=== PATIENT | female | born 1975 | race Two or more races ===

== ENCOUNTER 2020-05-04 14:03 | Outpatient (REF) | payer OTHER, MEDICAID, SELFPAY ==
--- NOTE | 2020-05-04 14:08 | MM_ITS ---
EXAMINATION: MM SCREENING DIGITAL BREAST TOMOSYNTHESIS, BILATERAL CLINICAL INFORMATION: Screening. Asymptomatic. The lifetime risk of breast cancer based on the Tyrer-Cuzick Model is 6.8%. COMPARISON: Mammography: 08/13/2017 and 05/09/2016. TECHNIQUE: Digital breast tomosynthesis is performed in both the craniocaudal and mediolateral oblique views along with computer-aided detection (CAD). Synthesized 2D images are generated from the tomosynthesis. FINDINGS: The breasts are heterogeneously dense, which may obscure small masses (ACR BI-RADS breast composition Category c). There is stable appearance of the left breast with no new abnormal dominant mass or suspicious grouping of microcalcifications. Within the retroareolar region of the right breast medially there is a well-circumscribed approximately 9 x 7 x 6 mm density not seen previously. Recommend spot compression film and ultrasound if warranted. MM/MM tomosynthesis screening BI IMPRESSION: Right breast density for further evaluation as described. ASSESSMENT: BI-RADS 0: Incomplete - Need Additional Imaging Evaluation RECOMMENDATION: 1. Additional views of the right breast. 2. Targeted ultrasound if warranted after review of the additional views. 3. Radiology department staff will contact the patient for additional imaging. This patient's information was entered into a reminder system with a target due date for their next mammogram.
== END 2020-05-04 14:04 | disposition home or self-care (01) ==
LOC: HO.MAMMO 14:03
PROVIDERS: PCP Family Medicine; Visit Provider Family Medicine
DX: Z12.31 Encounter for screening mammogram for malignant neoplasm of breast (principal)
CPT/HCPCS: 77063; 77067

== ENCOUNTER 2020-06-08 12:53 | Outpatient (REF) | payer MEDICAID, OTHER, SELFPAY ==
--- NOTE | 2020-06-08 12:57 | MM_ITS ---
EXAMINATION: MM DIAGNOSTIC DIGITAL BREAST TOMOSYNTHESIS, RIGHT CLINICAL INFORMATION: Recall from screening for retroareolar nodule 4:00 position right breast. Age 44. No family history breast cancer. TC score 7%. COMPARISON: Mammography: 05/04/2020, 08/13/2017, 05/09/2016. TECHNIQUE: Digital breast tomosynthesis is performed. 2D images are generated from the tomosynthesis. The following views are obtained: Spot CC, spot ML. Ultrasound right breast is targeted to the periareolar medial breast. Grayscale imaging and color Doppler are performed without and with harmonics. FINDINGS: There are scattered areas of fibroglandular density (ACR BI-RADS breast composition Category b). The additional spot views confirm a circumscribed smooth nodule retroareolar 330 o'clock position measuring under 1 cm. In retrospect, finding is likely stable from 2-D mammography MLO views 08/13/2017, better appreciated on current exam with digital breast tomosynthesis. Ultrasound right breast demonstrates circumscribed macrolobulated nodule approximately 0.8 x 0.6 cm retroareolar 4:00 position wider than tall. No increased or decreased through transmission of sound. No associated color flow. Results are discussed with the patient at time of visit. Management options discussed with patient. Patient prefers serial follow-up to ultrasound-guided tissue sampling at this time. MM/MM tomosynthesis added views R IMPRESSION: Circumscribed retroareolar nodule 4:00 position measuring under 1 cm, likely chronic but better appreciated with recent tomography. Benign differential considerations include fibroadenoma, past, apocrine metaplasia. ASSESSMENT: BI-RADS 3: Probably Benign RECOMMENDATION: Diagnostic right mammography and right breast ultrasound in 6 months. This patient's information was entered into a reminder system with a target due date for their next mammogram.
== END 2020-06-08 12:54 | disposition home or self-care (01) ==
LOC: HO.MAMMO 12:53
PROVIDERS: PCP Family Medicine; Visit Provider Family Medicine
DX: N63.14 Unspecified lump in the right breast, lower inner quadrant (principal)
CPT/HCPCS: 76642; 77061; 77065

== ENCOUNTER 2020-06-21 09:09 | Outpatient (REF) | payer MEDICAID, OTHER, SELFPAY ==
--- NOTE | ~2020-06-21 | MM_ITS ---
EXAMINATION: ULTRASOUND GUIDED CORE BIOPSY BREAST, RIGHT POST PROCEDURE DIGITAL MAMMOGRAM, RIGHT CLINICAL INFORMATION: Hypoechoic periareolar nodule right breast under 1 cm. COMPARISON: Mammography 05/04/2020, 06/08/2020, targeted right breast ultrasound 06/08/2020. FINDINGS: Proper informed consent is obtained from the patient after discussion of the procedure, potential risks and complications, and alternatives. Patient was given an opportunity for questions. The patient appeared to understand. The patient consented to the procedure and signed the consent form. GUIDANCE: Ultrasound-guided; aseptic technique. LESION: Macrolobulated nodule 0.8 x 0.6 cm retroareolar 4:00 position wider than tall (apocrine metaplasia, papilloma, fibroadenoma, other). APPROACH: Oblique caudal cranial. ANESTHESIA: 10 mL 1% lidocaine. DERMATOTOMY: Single skin abbie dermatotomy performed. NEEDLE: 14-gauge Achieve core biopsy device with 13.5-gauge co-axial guide needle. CORES: 6. CLIP: HydroMARK; shape: open coil. POST PROCEDURE UNILATERAL DIGITAL MAMMOGRAM: The post biopsy mammogram is performed in separate room using separate digital mammography equipment from the biopsy procedure. CC and ML views are obtained. There are scattered areas of fibroglandular density (breast composition category: b). The clip marker is in position. The nodule sampled on ultrasound corresponds to the recent mammographic finding (concordant). No gross hematoma. The patient tolerated the procedure well. No immediate complications. Home instructions reviewed with the patient. Final pathology results are pending. MM/MM diagnostic mammo unilat RT IMPRESSION: 1. Status post ultrasound-guided core biopsy right breast. 2. Clip placed: HydroMARK; shape: open coil. 3. Pathology pending. An addendum report will be issued.
== END 2020-06-21 09:10 | disposition home or self-care (01) ==
LOC: HO.MAMMO 09:09
PROVIDERS: Visit Provider Surgery
DX: N63.14 Unspecified lump in the right breast, lower inner quadrant (principal)
CPT/HCPCS: 19083; 77065; 88305; 99202; A4648

== ENCOUNTER 2021-06-16 10:08 | Outpatient (REF) | payer MEDICAID, OTHER, SELFPAY ==
--- NOTE | ~2021-06-16 | MM_ITS ---
EXAMINATION: MM SCREENING DIGITAL BREAST TOMOSYNTHESIS, BILATERAL CLINICAL INFORMATION: Screening. Asymptomatic. Benign right ultrasound-guided biopsy 06/21/2020 (fibroadenoma). The lifetime risk of breast cancer based on the Tyrer-Cuzick Model is 12%. COMPARISON: Mammography: 06/21/2020, 06/08/2020, 05/04/2020, 08/13/2017; ultrasound guided right breast biopsy 06/21/2020. Ultrasound right breast 06/08/2020 TECHNIQUE: Digital breast tomosynthesis is performed in both the craniocaudal and mediolateral oblique views along with computer-aided detection (CAD). Synthesized 2D images are generated from the tomosynthesis. FINDINGS: There are scattered areas of fibroglandular density (ACR BI-RADS breast composition Category b). There are no significant masses, abnormal calcifications, or other abnormalities. Parenchymal pattern is similar to prior studies. No developing density. There is a biopsy clip marker again noted retroareolar 4:00 right breast. MM/MM tomosynthesis screening BI IMPRESSION: No mammographic evidence of malignancy. ASSESSMENT: BI-RADS 2: Benign RECOMMENDATION: Routine annual mammography screening. This patient's information was entered into a reminder system with a target due date for their next mammogram.
== END 2021-06-16 10:09 | disposition home or self-care (01) ==
LOC: HO.MAMMO 10:08
PROVIDERS: Visit Provider Family Medicine
DX: Z12.31 Encounter for screening mammogram for malignant neoplasm of breast (principal)
CPT/HCPCS: 77063; 77067

== ENCOUNTER 2022-06-25 15:09 | Outpatient (REF) | payer MEDICAID, SELFPAY ==
--- NOTE | ~2022-06-25 | MM_ITS ---
EXAMINATION: MM SCREENING DIGITAL BREAST TOMOSYNTHESIS, BILATERAL CLINICAL INFORMATION: Screening. Asymptomatic. Benign right ultrasound-guided biopsy 06/21/2020 (fibroadenoma). The lifetime risk of breast cancer based on the Tyrer-Cuzick Model is 7%. COMPARISON: Mammography: 06/16/2021, 06/21/2020, 06/08/2020, 05/04/2020 TECHNIQUE: Digital breast tomosynthesis is performed in both the craniocaudal and mediolateral oblique views along with computer-aided detection (CAD). Synthesized 2D images are generated from the tomosynthesis. FINDINGS: There are scattered areas of fibroglandular density (ACR BI-RADS breast composition Category b). There are no significant masses, abnormal calcifications, or other abnormalities. There is biopsy clip marker overlying a stable nodule anterior right breast consistent with the known fibroadenoma. No developing density or architectural abnormality. The axilla are unremarkable. No significant changes. MM/MM tomosynthesis screening BI IMPRESSION: No mammographic evidence of malignancy. ASSESSMENT: BI-RADS 2: Benign RECOMMENDATION: Routine annual mammography screening. This patient's information was entered into a reminder system with a target due date for their next mammogram.
== END 2022-06-25 15:10 | disposition home or self-care (01) ==
LOC: HO.MAMMO 15:09
PROVIDERS: PCP Family Medicine; Visit Provider Family Medicine
DX: Z12.31 Encounter for screening mammogram for malignant neoplasm of breast (principal)
CPT/HCPCS: 77063; 77067

== ENCOUNTER → 2022-10-16 14:03 | Outpatient (BNVA) | payer MEDICAID, SELFPAY | PROVIDERS: PCP Family Medicine; Visit Provider Surgery Vascular Surgery | DX: I83.12 Varicose veins of left lower extremity with inflammation (principal) | CPT/HCPCS: 99202 ==

== ENCOUNTER 2022-10-24 13:06 | Outpatient (REF) | payer MEDICAID, SELFPAY ==
--- NOTE | ~2022-10-24 | US_ITS ---
EXAMINATION: US LOWER EXTREMITY VENOUS (REFLUX EXAM), BILATERAL CLINICAL INDICATION: History of left leg ablation COMPARISON: None. TECHNIQUE: Color flow triplex imaging and compression Doppler was performed to evaluate both the deep and the superficial systems bilaterally. To evaluate the superficial system, the examination was performed in the upright position. Color-flow Doppler ultrasound and compression ultrasound were utilized. In addition, maneuvers were utilized to demonstrate reflux. FINDINGS: 1. DEEP VENOUS ULTRASOUND OF THE RIGHT LOWER EXTREMITY: Common Femoral Vein: Compressible, normal respiratory variation and augmented flow. Femoral Vein: Compressible, normal color flow and augmentation. Popliteal Vein: Compressible, normal augmentation. Deep Reflux: There is no evidence of reflux in the deep system in either the common femoral vein or the popliteal vein. There is no evidence of a Yi's cyst. 2. SUPERFICIAL ULTRASOUND WITH DOPPLER OF RIGHT LOWER EXTREMITY: GREAT SAPHENOUS VEIN: Saphenofemoral Junction: 0.7 cm; Reflux: 0 ms Proximal Thigh: 0.4 cm; Reflux: 0 ms Mid Thigh: 0.3 cm; Reflux: 1228 ms Above Knee: 0.3 cm; Reflux: 0 ms At Knee: 0.4 cm; Reflux: 0 ms Below Knee: 0.3 cm; Reflux: 0 ms Mid Calf: 0.2 cm; Reflux: 0 ms Ankle: 0.3 cm; Reflux: 0 ms DUPLICATED MEDIAL GREAT SAPHENOUS VEIN: Diameter: None imaged Reflux: NA DUPLICATED LATERAL GREAT SAPHENOUS VEIN: Proximal: 0.3 cm; Reflux: 0 ms Distal: 0.1 cm; Reflux: 0 ms SMALL SAPHENOUS VEIN: Proximal: 0.2 cm; Reflux: 0 ms Distal: 0.2 cm; Reflux: 0 ms VEIN OF GIACOMINI: Size: NA Reflux: NA PERFORATORS: Location: None imaged Size: NA Reflux: NA VARICOSITIES: Location: None imaged Size: NA Reflux: NA 3. DEEP VENOUS ULTRASOUND OF THE LEFT LOWER EXTREMITY: Common Femoral Vein: Compressible, normal respiratory variation and augmented flow. Femoral Vein: Compressible, normal color flow and augmentation. Popliteal Vein: Compressible, normal augmentation. Deep Reflux: There is no evidence of reflux in the deep system in either the common femoral vein or the popliteal vein. There is no evidence of a Yi's cyst. 4. SUPERFICIAL ULTRASOUND WITH DOPPLER OF LEFT LOWER EXTREMITY: GREAT SAPHENOUS VEIN: Saphenofemoral Junction: 0.8 cm; Reflux: 0 ms Proximal Thigh: 0.4 cm; Reflux: 0 ms Mid Thigh: 0.3 cm; Reflux: 0 ms Above Knee: 0.3 cm; Reflux: 0 ms At Knee: 0.3 cm; Reflux: 0 ms Below Knee: 0.3 cm; Reflux: 0 ms Mid Calf: 0.2 cm; Reflux: 0 ms Ankle: 0.2 cm; Reflux: 0 ms DUPLICATED MEDIAL GREAT SAPHENOUS VEIN: Diameter: None imaged Reflux: NA DUPLICATED LATERAL GREAT SAPHENOUS VEIN: Proximal: 0.3 cm; Reflux: 0 ms Distal: 0.2 cm; Reflux: 0 ms SMALL SAPHENOUS VEIN: Proximal: 0.2 cm; Reflux: 0 ms Distal: 0.3 cm; Reflux: 0 ms VEIN OF GIACOMINI: Size: NA Reflux: NA PERFORATORS: Location: None imaged Size: Mid calf 0.2 cm Reflux: NA VARICOSITIES: Location: None Imaged Size: NA Reflux: NA Incidental note is made of a normal appearing left inguinal lymph node. US/US venous duplex LE BI IMPRESSION: Right great saphenous vein reflux at the mid thigh.
== END 2022-10-24 13:07 | disposition home or self-care (01) ==
LOC: HO.US 13:06
PROVIDERS: PCP Family Medicine; Visit Provider Surgery Vascular Surgery
DX: I83.12 Varicose veins of left lower extremity with inflammation (principal)
CPT/HCPCS: 93970

== ENCOUNTER 2022-12-06 14:55 | Outpatient (AMB) | payer MEDICAID, SELFPAY ==
[2022-12-06 14:56] VITALS: BMI 24.3
--- NOTE | 2022-12-06 14:56 | A.OFFVIS_ITS ---
Intake Vital Signs 12/06/22 14:56 Height 5 ft 5 in Weight 146 lb BMI 24.3 Intake Visit Reasons: f/u s/p US 10/24/22 Intake Note: follow up US 10/24/2022 for Left LE VV and swelling. Pt had Left LE venous procedure done by @ [facility] in the past. 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 Pt states that she has been wearing compression socks (knee high) pt states she would prefer thigh high socks Accompanied by: Self / Same As Patient Allergies ethinyl estradiol [From Seasonale ()] Allergy (Mild, Verified 10/16/22 14:11) Sneezing levonorgestrel [From Seasonale (91)] Allergy (Mild, Verified 10/16/22 14:11) Sneezing HPI f/u s/p US 10/24/22 HPI Details Very pleasant 47-year-old female presents for follow-up regarding painful varicosities. The biggest complaint is a cluster varicosities in her left posterior thigh. Overall she does note a significant improvement with compression stockings. She now presents for follow-up with venous insufficiency testing. Of note she has had prior left leg ablation is by Dr. Mayer at [facility]. This has been affecting her work as a childcare worker at [employer]. [employer] Surgical History History of back surgery History of foot surgery Social History Alcohol intake: current Alcohol intake frequency: holidays/special occasions only Alcohol type: wine Review of Systems Const Reports as per HPI ENT Reports no additional complaints Card Denies chest pain, Denies chest pain at rest and Denies chest pain with activity Resp Denies chest congestion and Denies cough GI Reports no additional complaints Musc Details: pain over varicosities, aching of lower extremities, swelling, cramping, heaviness and tiredness, itching Denies abnormal gait Skin/Breast Reports pruritus and Denies wounds Neuro Reports no additional complaints and Denies abnormal gait Psych Denies no additional complaints Physical Exam Vital Signs: BMI result Body Mass Index 24.3 Const General: cooperative, healthy appearing and comfortable Orientation/consciousness: oriented to person, oriented to place and oriented to time Neck Carotids: no bruits Chest Chest palpation & inspection: normal inspection of the chest and normal palpation of entire chest wall Resp Effort & Inspection: normal respiratory effort and able to speak in complete sentences Cardio Rate: regular rate Heart sounds: S1 normal heart sound present and S2 normal heart sound present Peripheral pulses: Peripheral pulses 2+ throughout GI Inspection: Yes normal to inspection Skin Other: +2 edema, large rope-like varicosities greater than 4 mm left posterior thigh CEAP Classification C4 - skin color changes Ep - Etiology Primary As - superficial veins P - reflux General skin exam: dry skin Neuro General: oriented to person, oriented to place and oriented to time Extrem Right lower extremity: full ROM, normal capillary refill and edema Left lower extremity: full ROM, normal capillary refill and edema Psych Mental Status: mental status grossly normal Results Reviewed Results Reviewed: Brief summary of venous insufficiency testing is as follows: right great saphenous vein: negative right small saphenous vein: negative right accessory vein: none present left great saphenous vein: negative left small saphenous vein: negative left accessory vein: none present Please note there is no evidence of any venous aneurysms or significant tortuosity Assessment & Plan Assessment & Plan (1) Varicose veins of left lower extremity with inflammation: Code(s): I83.12 - Varicose veins of left lower extremity with inflammation Plan: In short patient is negative for any significant venous reflux. It appears that the prior ablation is half function fairly well. She does have this left posterior thigh cluster. At the current time she would like to manage this conservatively. I did give her a prescription for thigh-high compression stockings. She will follow up with us on an as-needed basis if she does require a microphlebectomy. Thank you for allowing us to assist in her care. If there are any questions or concerns please do not hesitate to contact us. Coding Level of Care Code Est Pt Level 4 (34215) Diagnoses Varicose veins of left lower extremity with inflammation I83.12
== END 2022-12-06 15:14 | disposition home or self-care (01) ==
PROVIDERS: PCP Family Medicine; Visit Provider Surgery Vascular Surgery
DX: I83.12 Varicose veins of left lower extremity with inflammation (principal)
CPT/HCPCS: 99213

== ENCOUNTER → 2022-12-06 14:55 | Outpatient (BNVA) | payer MEDICAID, SELFPAY | PROVIDERS: PCP Family Medicine; Visit Provider Surgery Vascular Surgery ==

== ENCOUNTER → 2022-12-12 14:05 | Outpatient (AMB) | payer MEDICAID, SELFPAY ==
--- NOTE | 2022-12-12 14:10 | A.OFFVIS_ITS ---
Intake Vital Signs 12/12/22 14:16 Height 5 ft 5 in Weight 146 lb BMI 24.3 BP 125/64 Blood Pressure Location Lt brachial Position Sitting Pulse 92 Intake Visit Reasons: CIC Intake Note: Patient new consult for CIC. Patient denies any GI issues. Hand Plug Shaper Required: No Accompanied by: Self / Same As Patient Allergies ethinyl estradiol [From Seasonale (91)] Allergy (Mild, Verified 12/12/22 14:10) Sneezing levonorgestrel [From Seasonale (91)] Allergy (Mild, Verified 12/12/22 14:10) Sneezing Medication List - Last Reconciled 12/12/22 by Pia Aguiar PA-C acetaminophen ER 650 mg PO Q8H cholecalciferol (vitamin D3) 50 mcg PO DAILY fluticasone propionate 50 mcg/actuation (Flonase Allergy Relief) 2 sprays intranasal DAILY loratadine (Claritin) 10 mg PO DAILY naproxen (Naprosyn) 500 mg PO BID HPI HPI Comments History of Present Illness Details A 47 y/o female referred for index screening colonoscopy-she has a normal bowel pattern. She has very good appetite. 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 She has not had any issues. She was followed up postop and discharged She is back to work full-time No known family history colon cancer No nausea, vomiting, hematemesis, hematochezia fever chills PFSH Surgical History History of back surgery History of foot surgery Social History Household Members: Children Alcohol intake: current Alcohol intake frequency: holidays/special occasions only Alcohol type: wine Patient Tobacco Use Status: Never used Tobacco Use of substances other than those prescribed or required for medical reasons: No Review of Systems Const All systems reviewed & are unremarkable except as noted in HPI and below Card Denies chest pain and Denies dyspnea Resp Denies dyspnea GI Denies abdominal pain, Denies change in bowel habits, Denies heartburn, Denies nausea and Denies vomiting Physical Exam Vital Signs: Last Vital Signs Pulse 92 12/12/22 14:16 BP 125/64 12/12/22 14:16 BMI result Body Mass Index 24.3 Const General: cooperative, healthy appearing, comfortable, no acute distress, well developed and Physically active Orientation/consciousness: patient oriented x3 Limitations: no limitations Eyes Sclerae: sclerae normal Resp Effort & Inspection: normal respiratory effort and able to speak in complete sentences Auscultation: clear to auscultation bilaterally Cardio Rate: regular rate Rhythm: regular rhythm Heart sounds: S1 normal heart sound present and S2 normal heart sound present GI Palpation (GI): Soft to palpation and nontender Auscultation: normal bowel sounds Skin General skin exam: no rashes or lesions noted Neuro General: patient oriented x3 Extrem General: Yes full ROM Psych Appearance: grossly normal and well kempt Mental Status: mental status grossly normal Speech and movement: Normal speech and movement present and Clear speech present Affect: normal affect Attitude: cooperative Thought process: Normal thought process present Thought content: Normal thought content present Insight: Good insight present (Psych) Judgement: Good judgement present (Psych) Assessment & Plan Assessment & Plan (1) Encounter for screening colonoscopy: Comment: 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 20 mg (4 x 5 mg) PO ONCE 1 day 4 tabs 0RF colonoscopy prep Z12.11 - Encounter for screening for malignant neoplasm of colon polyethylene glycol 3350 (Miralax) Take as directed by mouth the day before your procedure. 238 grams PO ONCE 1 day PRN 238 grams 0RF laxative effect Patient Instructions: a very pleasant 47 y/o female referred for index screening colonoscopy. She has no GI complaints. Discussed procedure, rare risks, need for escorted due to anesthesia and MiraLax Gatorade prep literature given Opportunity for questions Appreciate the opportunity assist in the care this pleasant patient Coding Level of Care Code New Pt Level 3 (99511) Diagnoses Encounter for screening colonoscopy Z12.11 Time Spent (min) 30
[2022-12-12 14:16] VITALS: BP 125/64; PULSE 92; BMI 24.3
== END ==
PROVIDERS: PCP Family Medicine; Visit Provider Physician Assistant
DX: Z12.11 Encounter for screening for malignant neoplasm of colon (principal)
CPT/HCPCS: 99203

== ENCOUNTER → 2022-12-12 14:05 | Outpatient (BNVA) | payer MEDICAID, SELFPAY | PROVIDERS: PCP Family Medicine; Visit Provider Physician Assistant | DX: Z12.11 Encounter for screening for malignant neoplasm of colon (principal); K59.04 Chronic idiopathic constipation | CPT/HCPCS: 99203 ==

== ENCOUNTER 2022-12-27 21:24 | Outpatient (REF) | payer MEDICAID, SELFPAY ==
[2022-12-28 15:22] LABS: BV Int Neg Control Negative (Negative); BV Int Pos Control Positive (Positive)
== END 2022-12-27 21:25 | disposition home or self-care (01) ==
LOC: HO.HHCLNP 21:24
PROVIDERS: Visit Provider Advanced Practice Midwife
DX: N89.8 Other specified noninflammatory disorders of vagina (principal); B37.31 Acute candidiasis of vulva and vagina
CPT/HCPCS: 87480; 87510; 87660

== ENCOUNTER 2023-07-08 15:12 | Outpatient (REF) | payer MEDICAID, SELFPAY ==
--- NOTE | ~2023-07-08 | MM_ITS ---
EXAMINATION: MM SCREENING DIGITAL BREAST TOMOSYNTHESIS, BILATERAL CLINICAL INFORMATION: Screening. Asymptomatic. COMPARISON: Mammography: This study is compared with prior exams dating back to 2018. TECHNIQUE: Digital breast tomosynthesis is performed in both the craniocaudal and mediolateral oblique views along with computer-aided detection (CAD). Synthesized 2D images are generated from the tomosynthesis. FINDINGS: The breasts are heterogeneously dense, which may obscure small masses (ACR BI-RADS breast composition Category c). There are no significant masses, abnormal calcifications, or other abnormalities. There is a tissue marker present in the medial aspect of the right breast from prior benign percutaneous biopsy. MM/MM tomosynthesis screening BI IMPRESSION: No mammographic evidence of malignancy. ASSESSMENT: BI-RADS BI-RADS 2 - Benign Findings RECOMMENDATION: Routine annual mammography screening. 1 year F/U This examination should not preclude the clinical evaluation of a suspicious palpable abnormality. This patient's information was entered into a reminder system with a target due date for their next mammogram.
== END 2023-07-08 15:13 | disposition home or self-care (01) ==
LOC: HO.MAMMO 15:12
PROVIDERS: PCP Family Medicine; Visit Provider Family Medicine
DX: Z12.31 Encounter for screening mammogram for malignant neoplasm of breast (principal)
CPT/HCPCS: 77063; 77067

== ENCOUNTER → 2023-07-08 15:30 | Outpatient (BNV) | payer MEDICAID, SELFPAY | PROVIDERS: PCP Family Medicine; Visit Provider Radiology Diagnostic Radiology | DX: Z12.31 Encounter for screening mammogram for malignant neoplasm of breast (principal) | CPT/HCPCS: 77063; 77067 ==

== ENCOUNTER 2023-07-16 | Outpatient (REF) | payer MEDICAID, SELFPAY ==
[2023-07-18 17:04] LABS: C. trachomatis RNA TMA NOT DETECTED (NOT DETECTED); Candida glabrata RNA NOT DETECTED (NOT DETECTED); Candida species RNA DETECTED (NOT DETECTED); N. gonorrhoeae RNA TMA NOT DETECTED (NOT DETECTED); Trichomonas vaginalis RNA NOT DETECTED (NOT DETECTED)
== END 2023-07-16 00:01 | disposition home or self-care (01) ==
LOC: HO.HHCLNP
PROVIDERS: Visit Provider Nurse Practitioner Family
DX: N89.8 Other specified noninflammatory disorders of vagina (principal)
CPT/HCPCS: 36415; 81513; 87481; 87491; 87591; 87661

== ENCOUNTER 2023-10-08 11:24 | Outpatient (REF) | payer MEDICAID, SELFPAY ==
[2023-10-09 14:03] LABS: Bacterial Vaginosis PCR POSITIVE (Negative); Candida Group PCR DETECTED (Not Detect); Candida glab krusei PCR NOT DETECTED (Not Detect); Trichomonas vaginalis PCR NOT DETECTED (Not Detect)
[2023-10-09 14:51] LABS: CT PCR NOT DETECTED (Not Detect.); NG PCR NOT DETECTED (Not Detect.)
== END 2023-10-08 11:25 | disposition home or self-care (01) ==
LOC: HO.LNP 11:24
PROVIDERS: Visit Provider Internal Medicine
DX: N76.0 Acute vaginitis (principal)
CPT/HCPCS: 0352U; 0353U; 87086

== ENCOUNTER 2024-01-15 12:10 | Outpatient (REF) | payer MEDICAID, SELFPAY ==
[2024-01-16 13:19] LABS: Bacterial Vaginosis PCR POSITIVE (Negative); Candida Group PCR DETECTED (Not Detect); Candida glab krusei PCR NOT DETECTED (Not Detect); Trichomonas vaginalis PCR NOT DETECTED (Not Detect)
[2024-01-16 13:49] LABS: CT PCR NOT DETECTED (Not Detect.); NG PCR NOT DETECTED (Not Detect.)
== END 2024-01-15 12:11 | disposition home or self-care (01) ==
LOC: HO.HHCLNP 12:10
PROVIDERS: Visit Provider Nurse Practitioner
DX: N89.8 Other specified noninflammatory disorders of vagina (principal)
CPT/HCPCS: 0352U; 87491; 87591

== ENCOUNTER 2024-09-04 16:31 | Outpatient (REF) | payer MEDICAID, SELFPAY ==
--- OUTSIDE RECORDS SUMMARY | 2024-09-04 16:35 | XMS_ITS | Encounter Summary ---
Author Organization [employer] Address [address] [place] [address] Care Team Providers Care Professional Engineer Name Role Phone MorKaylan foy Primary Care Provider + [phone] Encounter Details Date Type Department Care Team (Late st Contact Info) Description 07/26/2023 Orders Only [facility] [address] [place] [address] Elisabeth Knight FNP [address] [place] [address] Social History Tobacco Use Types Packs/Day Years Used Date Smoking Tobacco: Never Passive Smoke Exposure: Never Smokeless Tobacco: Never Alcohol Use Standard Drinks/Week Comments Never 0 (1 standard drink = 0.6 oz pur e alcohol) Depression Answer Date Recorded Patient Health Questionnaire-9 Score 12 09/27/2022 Housing Stability Answer Date Recorded What is your housing situation today? I have kwasi nugent 03/11/[address] you li ve. Do you have problems with any of the following? None of the above 03/11/2023 Food Insecurity Answer Date Recorded Within the past 12 months, y ou worried that your food would run out before you got money to buy more: Never True 03/11/2023 Within the past 12 months,th e food you bought just didn't last and you didn't have enough money to get more: Never True Transportation Answer Date Recorded In the past 12 months, has l ack of transportation kept you from medical appts, meetings, work or from getting things needed for daily living? No 03/11/2023 Utilities Answer Date Recorded In the past 12 months, has t he electric, gas, oil or water company threatened to shut off services in your home? No 03/11/2023 Depression Answer Date Recorded Patient Health Questionnaire-2 Score 4 09/27/2022 Comments No Sex and Gender Information Value Date Recorded Sex Assigned at Female 03/12/2022 10:21 AM EDT Legal Sex Female 10:21 AM EDT Gender Identity Female 03/12/2022 10:21 AM EDT Sexual Orientation Choose not to disclose 2021 10:21 AM EDT documented as of this encounter Plan of Treatment Not on file documented as of this encounter Visit Diagnoses Not on filedocumented in this encounter Additional Health Concerns Assessment Noted Time PHQ-9 Depression Total Score: 12 023 12:11 PM EDT documented as of this encounter Care Teams Professional Engineer Relationship Specialty Start Date End Date Kaylan Bello DO [address] [place] [id number] PCP - General Family Medicine 02/10/21 documented as of this encounter
--- OUTSIDE RECORDS SUMMARY | 2024-09-04 16:36 | XMS_ITS | Encounter Summary ---
Author Organization [employer] Address [address] [place] [address] Care Team Providers Care Centerless Grinder Name Role Phone Kaylan Bello DO Primary Care Provider [phone] Encounter Details Date Type Department Care Team (Latest Contact Info) Description 02/27/2021 Abstract [facility], Provider, DDS Social History Tobacco Use Types Packs/Day Years Used Date Smoking Tobacco: Never Assessed Comments Unknown Sex and Gender Information Value Date Recorded Sex Assigned at Female 03/12/2022 10:21 AM EDT Legal Sex Female 10:21 AM EDT Gender Identity Female 03/12/2022 10:21 AM EDT Sexual Orientation Choose not to disclose 2021 10:21 AM EDT documented as of this encounter Plan of Treatment Not on file documented as of this encounter Visit Diagnoses Not on filedocumented in this encounter Care Teams Centerless Grinder Relationship Specialty Start Date End Date Kaylan Bello DO [address] [place] [id number] PCP - General Family Medicine 02/10/21 documented as of this encounter
--- OUTSIDE RECORDS SUMMARY | 2024-09-04 16:36 | XMS_ITS | Encounter Summary ---
Author Organization [employer] Address [address] [place] [address] Care Team Providers Care Background Check Coordinator Name Role Phone Kaylan Bello DO Primary Care Provider [phone] Encounter Details Date Type Department Care Team (Latest Contact Info) Description 08/29/2021 [facility], Provider, DDS Social [...] on filedocumented in this encounter Care Teams Background Check Coordinator Relationship Specialty Start Date End Date Kaylan Bello DO [address] [place] [id number] PCP - General Family Medicine 02/10/21 documented as of this encounter
--- OUTSIDE RECORDS SUMMARY | 2024-09-04 16:36 | XMS_ITS | Encounter Summary ---
Author Organization [employer] Address [address] [place] [address] Care Team Providers Care Engine Dynamometer Tester Name Role Phone Kaylan Bello DO Primary Care Provider [phone] Encounter Details Date Type Department Care Team (Latest Contact Info) Description 07/25/2018 [facility], Provider, DDS Social [...] on filedocumented in this encounter Care Teams Engine Dynamometer Tester Relationship Specialty Start Date End Date Kaylan Bello DO [address] [place] [id number] PCP - General Family Medicine 02/10/21 documented as of this encounter
--- OUTSIDE RECORDS SUMMARY | 2024-09-04 16:36 | XMS_ITS | Encounter Summary ---
Author Organization [employer] Address [address] [place] [address] Care Team Providers Care Director Of Category Management Name Role Phone Kaylan Bello DO Primary Care Provider [phone] Encounter Details Date Type Department Care Team (Latest Contact Info) Description 06/02/2020 Abstract [facility], Provider, DDS Social [...] on filedocumented in this encounter Care Teams Director Of Category Management Relationship Specialty Start Date End Date Kaylan Bello DO [address] [place] [id number] PCP - General Family Medicine 02/10/21 documented as of this encounter
--- OUTSIDE RECORDS SUMMARY | 2024-09-04 16:36 | XMS_ITS | Encounter Summary ---
Author Organization [employer] Address [address] [place] [address] Care Team Providers Care Public Transit Trolley Driver Name Role Phone Kaylan Bello Primary Care Provider + [phone] Encounter Details Date Type Department Care Team (Latest Contact Info) Description 09/04/2024 Travel Social History Tobacco Use Types Packs/Day Years Used Date Smoking Tobacco: Never Passive Smoke Exposure: Never Smokeless Tobacco: Never Alcohol Use Standard Drinks/Week Comments Never 0 (1 standard drink = 0.6 oz pur e alcohol) Depression Answer Date Recorded Patient Health Questionnaire-9 Score 18 09/04/2024 Patient Health Questionnaire-9 Score 18 09/04/2024 Last PHQ-9: Questionnaire Data Not on file 0 09/04/2024 Housing Stability Answer Date Recorded What is your housing situation today? I have kwasi nugent 09/04/[address] you li ve. Do you have problems with any of the following? None of the above 09/04/2024 Food Insecurity Answer Date Recorded Within the past 12 months, y ou worried that your food would run out before you got money to buy more: Never True 09/04/2024 Within the past 12 months,th e food you bought just didn't last and you didn't have enough money to get more: Never True Transportation Answer Date Recorded In the past 12 months, has l ack of transportation kept you from medical appts, meetings, work or from getting things needed for daily living? No 09/04/2024 Utilities Answer Date Recorded In the past 12 months, has t he electric, gas, oil or water company threatened to shut off services in your home? No 09/04/2024 Depression Answer Date Recorded Patient Health Questionnaire-2 Score 4 09/04/2024 Internet Access Answer Date Recorded Internet Access Q1 Yes 09/04/2024 Internet Access Q2 Not on file 09/04/2024 Comments No Sex and Gender Information Value [...] Assessment Noted Time PHQ-9 Depression Total Score: 18 025 1:26 PM EDT documented as of this encounter Care Teams Public Transit Trolley Driver Relationship Specialty Start Date End Date Kaylan Bello DO [address] [place] [id number] PCP - General Family Medicine 02/10/21 documented as of this encounter
--- OUTSIDE RECORDS SUMMARY | 2024-09-04 16:36 | XMS_ITS | Encounter Summary ---
Author Organization [employer] Address [address] [place] [address] Care Team Providers Care Manufacturing Quality Technician Name Role Phone Kaylan Bello Primary Care Provider + [phone] Encounter Details Date Type Department Care Team (Latest Contact Info) Description 09/02/2024 Travel Social History Tobacco Use Types Packs/Day [...] documented as of this encounter Care Teams Manufacturing Quality Technician Relationship Specialty Start Date End Date Kaylan Bello DO [address] [place] [id number] PCP - General Family Medicine 02/10/21 documented as of this encounter
--- OUTSIDE RECORDS SUMMARY | 2024-09-04 16:36 | XMS_ITS | Encounter Summary ---
Author Organization [facility] Address [address] [place] [address] Care Team Providers Care Manager Highway Name Role Phone Kaylan Bello DO Primary Care Provider + [phone] Reason for Visit * Reason Onset Date Comments Chart Prep 09/02/2024 Encounter Details Date Type Department Care Team (Late st Contact Info) Description 09/02/2024 Telephone [facility] [address] [place], [place] [phone] Kaylan Bello DO [address] [place], [place] [phone] Chart Prep Social History Tobacco Use Types Packs/Day Years Used Date Smoking Tobacco: Never Passive Smoke Exposure: Never Smokeless Tobacco: Never Alcohol Use Standard Drinks/Week Comments Never 0 (1 standard drink = 0.6 oz pur e alcohol) Depression Answer Date Recorded Patient Health Questionnaire-9 Score 12 09/27/2022 Housing Stability Answer Date Recorded What is your housing situation today? I have kwasijoselito nugent 03/11/[address] you [...] AM EDT documented as of this encounter Miscellaneous Notes * Telephone Encounter - Cecille Mortensen [place] - 09/02/2024 9:27 AM EDT Chart Prep Labs: not applicable Images: done Referrals: N\S to derm appt on 03/13/2024 Vaccines due: yes Screenings: colonoscopy Overdue care gaps: SBIRT, SDOH, PHQ-9, ANATOLIY-7, Oral health screening, Disability screen, and Tobacco documented in this encounter Plan of Treatment Not on file documented as of this encounter Visit Diagnoses Not on filedocumented in this encounter Additional Health Concerns Assessment Noted Time PHQ-9 Depression Total Score: 12 023 12:11 PM EDT documented as of this encounter Care Teams Manager Highway Relationship Specialty Start Date End Date Kaylan Bello DO [address] [place] [address] PCP - General Family Medicine 02/10/21 documented as of this encounter
--- OUTSIDE RECORDS SUMMARY | 2024-09-04 16:36 | XMS_ITS | Encounter Summary ---
Author Organization [employer] Address [address] [place] [address] Care Team Providers Care Precision Machine Operator Name Role Phone Kaylan Bello DO Primary Care Provider + [phone] Reason for Visit * Reason Onset Date Comments Nurse Triage 10/24/2023 Encounter Details Date Type Department Care Team (Late st Contact Info) Description 10/24/2023 Telephone [facility] [address] [place], [place] [phone] Kaylan Bello DO [address] [place], [place] [phone] Nurse Triage Social History Tobacco Use Types Packs/Day Years [...] encounter Miscellaneous Notes * Telephone Encounter - Liana Figueroa RN - 10/24/2023 11:59 AM EDT Called pt. She states that she has been having allergies in her eyes x 2 days. Pt gets seasonal allergies at this time of year and eyes have become very itchy over the past 2 days. Redness but, no drainage. Eyelids are slightly swollen from rubbing eyes. Pt also has sneezing. Pt asking for refills on allergy medications. No fever, no cough. Advised pt. To apply cold compresses to eyes and if sx. Worsen or if pt. Develops drainage from eyes to go to walk in for further evaluation. Pt agrees withplan and would like allergy medications to be sent to Pharmacy. Will send request to PCP Protocol Used: Nasal Allergies (Hay Fever) (Adult) Protocol-Based Disposition: Home Care Positive Triage Question: * Nasal allergies occur only certain times of year * All higher-acuity triage questions were negative Care Advice Discussed: * Reassurance and Education - Hay Fever * Wash Pollen off Body Daily * Avoiding Pollen * Nasal Washes for a Stuffy Nose and to Wash out Pollen * Antihistamine Medicines for Hay Fever * Nasal Decongestants for a Very Stuffy Nose * For Eye Allergies * Telephone Encounter - Lina Lino - 10/24/2023 11:46 AM EDT Symptom: Eye Allergy Outcome: Schedule an urgent appointment (within 4 hours) or talk to a nurse or provider soon Reason: Eyelid is red and swollen The caller accepted this outcome documented in this encounter Plan of Treatment Not on file documented as of this encounter Visit Diagnoses Not on filedocumented in this encounter Additional Health Concerns Assessment Noted Time PHQ-9 Depression Total Score: 12 023 12:11 PM EDT documented as of this encounter Care Teams Precision Machine Operator Relationship Specialty Start Date End Date Kaylan Bello DO [address] [place] [address] PCP - General Family Medicine 02/10/21 documented as of this encounter
--- OUTSIDE RECORDS SUMMARY | 2024-09-04 16:36 | XMS_ITS | Encounter Summary ---
Author Organization [employer] Address [address] [place] [address] Care Team Providers Care Lottery Manager Name Role Phone Kaylan Bello DO Primary Care Provider + [phone] Encounter Details Date Type Department Care Team (Latest Contact Info) Description 09/04/2024 11:45 AM EDT Procedure Visit [facility] [address] [place], [place] [phone] Kaylan Bello DO [address] [place], [place] [phone] Encounter for cervical Pap smear with pelvic exam (Primary Dx) Social History Tobacco Use Types Packs/Day Years [...] AM EDT documented as of this encounter Last Filed Vital Signs Vital Sign Reading Time Taken Comments Blood Pressure 120/70 09/04/2024 12:08 PM EDT Pulse 64 09/04/2024 12:08 PM EDT Temperature 36.8 ??C (98.3 ??F) 09/04/2024 12:08 PM E DT Respiratory Rate 20 09/04/2024 12:08 PM EDT Oxygen Saturation 100% 09/04/2024 12:08 PM EDT Inhaled Oxygen Concentration - - Weight 66.7 kg (147 lb) 09/04/2024 12:08 PM EDT Height 165.1 cm (5' 5 ) 09/04/2024 12:08 PM EDT Body Mass Index 24.46 09/04/2024 12:08 PM EDT documented in this encounter Plan of Treatment Scheduled Orders Name Type Priority Associated Diagnoses Order Schedule Chlamydia/N. Gonorrhoeae RNA, TMA, Urogenitial Microbiology Routine Encounter for cervical Pap smear with pelvic exam Ordered: 09/04/2024 Pap Smear Pathology and Cytology Routine Encounter for cervical Pap smear with pelvic exam Ordered: 09/04/2024 T4, Free Lab Routine Encounter for cervical Pap smear with pelvic exam Expected: 09/04/2024 (Approximate), Expires: 09/04/2025 Lipid Panel, Standard Lab Routine Encounter for cervical Pap smear with pelvic exam Expected: 09/04/2024 (Approximate), Expires: 09/04/2025 TSH Lab Routine Encounter for cervical Pap smear with pelvic exam Expected: 09/04/2024 (Approximate), Expires: 09/04/2025 Vitamin D, 25-Hydroxy, Total, Immunoassay Lab Routine Encounter for cervical Pap smear with pelvic exam Expected: 09/04/2024 (Approximate), Expires: 09/04/2025 Hepatic Function Panel Lab Routine Encounter for cervical Pap smear with pelvic exam Expected: 09/04/2024 (Approximate), Expires: 09/04/2025 Hemoglobin A1c Lab Routine Encounter for cervical Pap smear with pelvic exam Expected: 09/04/2024 (Approximate), Expires: 09/04/2025 CBC Lab Routine Encounter for cervical Pap smear with pelvic exam Expected: 09/04/2024, Expires: 09/04/2025 Basic Metabolic Panel Lab Routine Encounter for cervical Pap smear with pelvic exam Expected: 09/04/2024 (Approximate), Expires: 09/04/2025 Hepatitis B surface antigen, EIA Lab Routine Encounter for cervical Pap smear with pelvic exam Expected: 09/04/2024 (Approximate), Expires: 09/04/2025 HIV-1/2 Antigen and Antibodies, Fourth Generation, with Reflexes Lab Routine Encounter for cervical Pap smear with pelvic exam Expected: 09/04/2024 (Approximate), Expires: 09/04/2025 Hepatitis C Antibody with Reflex to HCV, RNA, Quantitative, Real-Time PCR Lab Routine Encounter for cervical Pap smear with pelvic exam Expected: 09/04/2024, Expires: 09/04/2025 RPR (Monitor) with Reflex to??Titer Lab Routine Encounter for cervical Pap smear with pelvic exam Expected: 09/04/2024, Expires: 09/04/2025 Hepatitis B Surface Antibody, Qualitative Lab Routine Encounter for cervical Pap smear with pelvic exam Expected: 09/04/2024 (Approximate), Expires: 09/04/2025 Hepatitis A Antibody, Total Lab Routine Encounter for cervical Pap smear with pelvic exam Expected: 09/04/2024 (Approximate), Expires: 09/04/2025 Hepatitis B Core Antibody, Total Lab Routine Encounter for cervical Pap smear with pelvic exam Expected: 09/04/2024 (Approximate), Expires: 09/04/2025 documented as of this encounter Visit Diagnoses Diagnosis Encounter for cervical Pap smear with pelvic exam- Primary documented in this encounter Additional Health Concerns Assessment Noted Time PHQ-9 Depression Total Score: 18 025 1:26 PM EDT documented as of this encounter Care Teams Lottery Manager Relationship Specialty Start Date End Date Kaylan Bello DO [address] [place] [address] PCP - General Family Medicine 02/10/21 documented as of this encounter
--- OUTSIDE RECORDS SUMMARY | 2024-09-04 16:36 | XMS_ITS | Clinical Summary ---
Author Organization [employer] Address [address] [facility] 7[address] [place] [address] Care Team Providers Care Dispatch Lead Name Role Phone MorKaylan foy Primary Care Provider + [phone] Allergies No known active allergies Medications cholecalciferol (Vitamin D-3) 50 MCG (1999) tablet Take 1 tablet by mouth at bed time. 03/03/20 21 Active estradiol (Estrace) 0.1 MG/GM vaginal cream See Instructions, 1 Gm Vaginally Daily at bedtime every night for 2 weeks and then 2-3 times a week after that, # 42.5 Gm, 0 Refills, Maintenance, 11/14/21 14:14:00 EDT, [facility]/pharmacy #[id number], Partial fill upon patient request if the prescription is for... 11/15/19 22 Active etonogestrel-eluti ng (Nexplanon) 68 mg contraceptive implant Subcutaneous Active famotidine (Pepcid) 20 MG tablet Take 1 tablet by mouth every 12 (twelve) hours. 01/18/20 22 Active ibuprofen 600 MG tablet TAKE 1 TABLET BY MOUTH 4 TIMES A DAY NEEDED FOR PAIN 10/05/19 22 Active ketotifen (Zaditor) 0.025 % ophthalmic solution 1 drop in the morning and 1 drop in the evening. 10/30/19 19 Active simethicone (Mylicon,Gas-X) 180 MG capsule take one with meals three times a day 01/18/20 22 Active SUMAtriptan (Imitrex) 50 MG tablet Take 1 tablet by mouth. 03/24/20 21 Active levonorgestrel (Plan B) 1.5 MG tabletIndications: Encounter for removal and reinsertion of etonogestrel implant Take all at once today 1 tablet 05/24/19 23 Active polyethylene glycol, PEG, 3350 (Glycolax) 17 GM/SCOOP powder Take 17 g by mouth if needed each day (constipation). 578 g 1 09/28/19 23 Active senna (Senokot) 8.6 MG tablet Take 2 tablets (17.2 mg) by mouth if needed at bedtime for constipation. 60 tablet 1 09/28/19 23 Active baclofen (Lioresal) 10 MG tablet Take 1 tablet (10 mg) by mouth if needed in the morning, at noon, and at bedtime for muscle spasms. 60 tablet 1 09/28/19 23 Active Diclofenac Sodium 1 % gel Apply 2 g topically if needed in the morning, at noon, in the evening, and at bedtime (pain). 150 g 3 09/28/19 23 Active atorvastatin (Lipitor) 10 MG tabletIndications: Hyperlipidemia, unspecified hyperlipidemia type TAKE 1 TABLET BY MOUTH EVERYDAY AT BEDTIME 90 tablet 12/05/19 23 Active hydrocortisone (Preparation H) 1 % cream Apply to anal area bid prn 30 g 2 07/16/19 24 Active fluticasone (Flonase) 50 MCG/ACT nasal spray Administer 2 sprays into each nostril Once per day. 16 g 11 11/11/19 24 025 Active loratadine (Claritin) 10 MG tablet Take 1 tablet (10 mg) by mouth Once per day. 30 tablet 11 11/11/19 24 025 Active fluconazole (Diflucan) 200 MG tabletIndications: Vaginal dionisio Take 1 tablet (200 mg) by mouth 1 (one) time per week. 4 tablet 1 01/24/20 24 Active tacrolimus (Protopic) 0.1 % ointmentIndication s:Genital pruritus Apply topically 2 times daily. 30 g 1 01/24/20 24 025 Active Active Problems Problem Noted Date Diagnosed Date Varicose veins 09/07/2022 Hyperlipidemia 09/07/2022 Allergic rhinitis 09/07/2022 Chronic constipation 09/07/2022 BMI 25.0-25.9,adult 09/07/2022 Chronic migraine 05/02/2022 PTSD (post-traumatic stress disorder) 05/02/2022 Chronic pain in left foot 03/15/2016 Vitamin D deficiency 03/15/2016 Major depression, recurrent, chronic 10/27/2015 Resolved Problems Problem Noted Date Diagnosed Date Resolved Date Generalized abdominal pain 05/02/2022 0 09/07/2022 Pain in left shoulder 05/02/20222022 Syncope and collapse 05/02/2022 023 Encounters Date Type Department Care Team Description 09/04/2024 11:45 AM EDT Procedure Visit [facility] [address] [place] [address] Kaylan Bello DO Encounter for cervical Pap smear with pelvic exam (Primary Dx) 09/04/2024 Travel 09/02/2024 Travel 09/02/2024 Telephone [facility] [address] [place] [address] Kaylan Bello DO Chart Prep 06/10/2024 Telephone [facility] [address] [place] [address] Kaylan Bello DO No Show from Last 3 Months Immunizations Name Administration Dates Next Due Hep A, Adult 09/19/2018 Influenza injectable quadriv alent IIV4 with preservative 03/03/2018,04/11/2017 Influenza injectable quadriv alent preservative free 02/19/2023,03/03/2021,02/17/2020,2015 Influenza, IIV3, injectable 02/13/2010 Influenza, Split (incl. errol fied surface antigen) 02/01/2012 Influenza, seasonal, injecta ble, preservative free 03/09/2024 MMR 09/15/2018 Moderna Covid-19 Vaccine 12+ 06/02/2020 Pfizer Covid-19 Vaccine 12+ Bivalent 09/07/2022 TD (adult), 2 Lf tetanus tox oid, preservative free, adsorbed 08/08/2020 Tdap 09/19/2018,10/03/2009 Social History Tobacco Use Types Packs/Day Years Used Date Smoking Tobacco: Never Passive Smoke Exposure: Never Smokeless Tobacco: Never Tobacco Cessation:Counseling Given: Not Answered Alcohol Use Standard Drinks/Week Comments Never 0 [...] not to disclose 2021 10:21 AM EDT Last Filed Vital Signs Vital Sign Reading [...] Mass Index 24.46 09/04/2024 12:08 PM EDT Plan of Treatment Health Maintenance Due Date Last Done Comments CT Colonography 1975 Colonoscopy 1975 Colorectal Cancer Screening 1975 FIT DNA/Cologuard 1975 FIT 1975 FOBT 1975 Sigmoidoscopy 1975 Family Planning (PISQ) 07/11/1990 Hepatitis B Vaccines (1 of 3 - 19+ 3-dose series) 07/11/1994 Pap Smear 03/03/2024 03/03/2021, 02/11, 02/17/2020, Additional history exists Dental Oral Exam 06/06/2024 12/04/2023, , 02/27/2021, Additional history exists Dental Prophylaxis 06/06/2024 12/04/2023, 0 08/29/2021, 02/27/2021, Additional history exists Dental X-Ray: Full Mouth 08/30/2024 08/29/2021, 10/11 Dental X-Ray: Bitewings 12/04/2024 12/04/19, 07/11/2023, 08/29/2021, Additional history exists Mammogram 07/08/2025 07/08/2023, 06/13, 06/25/2022, Additional history exists Zoster Vaccines (1 of 2) 07/11/2025 Alcohol/Substance Use Screening 09/04/2025 09/04/2024 Depression Screening 09/04/2025 09/04/2024, 09/05/19 SDOH Screening 09/04/2025 09/04/2024 Tobacco Screening 09/04/2025 09/04/2024 Cervical Cancer Screening 03/03/2026 HPV/Cotest 03/03/2026 03/03/2021, 1011/2019, 05/09/2016 DTaP/Tdap/Td Vaccines (4 - Td or Tdap) 08/08/2030 08/08/2020, 09/19/2018, 10/03/2009 RSV Patients and Patients Aged 60 years or older (1 - 1-dose 75+ series) 07/11/2050 Hepatitis A Vaccines Aged Out 09/19/2018 No long er eligible based on patient's age to complete this topic HIV Screening Completed 09/07/2022, 03/24/2021 Hepatitis C Screening Completed 09/07/2022, 021 COVID-19 Vaccine Completed 03/09/2024, , 05/24/2021, Additional history exists Influenza Vaccine Completed 03/09/2024, , 03/03/2021, Additional history exists HIB Vaccines Aged Out No longer eligi ble based on patient's age to complete this topic HPV Vaccines Aged Out No longer eligi ble based on patient's age to complete this topic IPV Vaccines Aged Out No longer eligi ble based on patient's age to complete this topic Meningococcal Vaccine Aged Out No kajal eliane eligible based on patient's age to complete this topic Pneumococcal Vaccine: Pediatrics (0 to 5 Years) and At-Risk Patients (6 to 49) Years) Aged Out No longer eligible based on patient's age to complete this topic RSV under 20 months Aged Out No longe r eligible based on patient's age to complete this topic Rotavirus Vaccines Aged Out No longer eligible based on patient's age to complete this topic Procedures Procedure Name Priority Date/Time Associated Diagnosis Comments Full PROPHYLAXIS - ADULT Routine 12/04/2023 11:10 AM EDT BITEWINGS - 4 RADIOGRAPHIC IMAGES Routine 12/04/2023 11:10 AM EDT PERIODIC ORAL EVALUATION - ESTABLISHED PATIENT Routine 12/04/2023 11:10 AM EDT BI MAMMOGRAM SCREENING TOMOSYNTHESIS BILATERAL Routine 07/08/2023 3:30 PM EST HEPATITIS C AB W/RFL RNA, PCR W/RFL GENOTYPE,LIPA Routine 09/07/2022 12:41 PM EDT Healthcare maintenance HIV 1/2 ANTIGEN/ANTIBODY, FOURTH GENERATION W/RFL Routine 09/07/2022 12:41 PM EDT Healthcare maintenance INTRAORAL - COMPLETE SERIES OF RADIOGRAPHIC IMAGES Routine 08/29/2021 12:00 AM EDT HPV MRNA E6/E7 REFLEX TO HPV 16, 18/45 Routine 03/03/2021 12:00 AM EDT PAP SMEAR Routine 03/03/2021 12:00 AM EDT from Last 3 Months or Most Recently Relevant to Health Maintenance Results * BI Mammogram Screening Tomosynthesis Bilateral (07/08/2023 3:30 PM EST) Anatomical Region Laterality Modality Breast Bilateral Mammography 07/08/2023 3:30 PM EST Narrative 07/24/2023 6:04 PM EDT ? [facility] ? [address] ?[place], [place] [address] ? Mammography Report ? Signed ? Patient: Alondra Marques ?MR#: [id number] ?? [id number] ? : 1975 ?Acct:[id number] ? Age/Sex: 47 / F ?ADM Date: 07/08/23 ? Loc: HO.MAMMO ? Attending Dr: Kaylan Bello DO ? Ordering Physician: Kaylan Bello DO ?Results: 2B ?? enign Findings ? Date of Service: 07/08/23 ?Follow Up: 1 Year From Orig ?? inal Mammogram ? Procedure(s): MM tomosynthesis screening BI ?? Accession Number(s): [id number] ? cc: Kaylan Bello Milad DO ? EXAMINATION: ?? MM SCREENING DIGITAL BREAST TOMOSYNTHESIS, BILATERAL ? CLINICAL INFORMATION: ? Screening. Asymptomatic. ? COMPARISON: ?? Mammography: This study is compared with prior exams dating back to ?? 2018. ? TECHNIQUE: ?? Digital breast tomosynthesis is performed in both the craniocaudal and ?? mediolateral oblique views along with computer-aided detection (CAD). ?? Synthesized 2D images are generated from the tomosynthesis. ? FINDINGS: ?? The breasts are heterogeneously dense, which may obscure small masses ?? (ACR BI-RADS breast composition Category c). ? There are no significant masses, abnormal calcifications, or other ?? abnormalities. ? There is a tissue marker present in the medial aspect of the right ?? breast from prior benign percutaneous biopsy. ? MM/MM tomosynthesis screening BI ?? IMPRESSION: ?? No mammographic evidence of malignancy. ? ASSESSMENT: ? BI-RADS BI-RADS 2 - Benign Findings ? RECOMMENDATION: ?? Routine annual mammography screening. ? 1 year F/U ? This examination should not preclude the clinical evaluation of a ?? suspicious palpable abnormality. ? This patient's information was entered into a reminder system with a ?? target due date for their next mammogram. ? Dictated By: ?Margarita Porter MD ? Signed By: ?<Electronically signed by Margarita Porter MD in OV> ? 07/24/23 1800 ? DD/ 1530 ? TD/TT: ? Metals Analyst: ? Procedure Note Renan Smiley - 07/24/2023 [facility] [address] [place] [address] Dr. [place], [place] [address] Mammography Report Signed Patient: Alondra Marques MMR#: [id number] : 1975Acct:[id number] Age/Sex: 47 / FADM Date: 07/08/23 Loc: HO.MAMMO Attending Dr: Kaylan Bello DO Ordering Physician: Kaylan Belloults: 2B enign Findings Date of Service: 07/08/23Follow Up: 1 Year From Orig inal Mammogram Procedure(s): MM tomosynthesis screening BI Accession Number(s): [id number] cc: Kaylan Bello DO EXAMINATION: MM SCREENING DIGITAL BREAST TOMOSYNTHESIS, BILATERAL CLINICAL INFORMATION: Screening. Asymptomatic. COMPARISON: Mammography: This study is compared with prior exams dating back to 2018. TECHNIQUE: Digital breast tomosynthesis is performed in both the craniocaudal and mediolateral oblique views along with computer-aided detection (CAD). Synthesized 2D images are generated from the tomosynthesis. FINDINGS: The breasts are heterogeneously dense, which may obscure small masses (ACR BI-RADS breast composition Category c). There are no significant masses, abnormal calcifications, or other abnormalities. There is a tissue marker present in the medial aspect of the right breast from prior benign percutaneous biopsy. MM/MM tomosynthesis screening BI IMPRESSION: No mammographic evidence of malignancy. ASSESSMENT: BI-RADS BI-RADS 2 - Benign Findings RECOMMENDATION: Routine annual mammography screening. 1 year F/U This examination should not preclude the clinical evaluation of a suspicious palpable abnormality. This patient's information was entered into a reminder system with a target due date for their next mammogram. Dictated By: Margarita Porter MD Signed By: <Electronically signed by Margarita Porter MD in OV> 07/24/23 1800 DD/ 1530 TD/TT: Metals Analyst: Kaylan Bello DO IMG BI PROCEDURES Final Resu lt * Hepatitis C Antibody with Reflex to HCV RNA,PCR w/Reflex to Genotype, LiPA (09/07/2022 12:41 PM EDT) Hepatitis C Antibody NON-REACT JEREMY NON-REACT JEREMY Z2 Index 0.11 <1.00 [email or web address] [place] [facility] Comment: HCV antibody was non-reactive. There is no laboratory evidence of HCV infection. In most cases, no further action is required. However, if recent HCV exposure is suspected, a test for HCV RNA (test code 60881) is suggested. For additional information, please refer to http://education.[employer]faq/EQB286 (This link is being provided for informational/ educational purposes only.) 09/07/2022 12:4 1 PM EDT 09/07/2022 12:46 PM EDT Narrative [facility] - 09/10/2022 9:50 PM EDT FASTING:YES SAMPLE REC'D IN [place] FASTING: YES Kaylan Bello DO LAB BLOOD ORDERABLES Final R esult [facility] [address], [place] [address] [facility] [place] [facility] [address] [place] [address] * HIV-1/2 Antigen and Antibodies, Fourth Generation, with Reflexes (09/07/2022 12:41 PM EDT) HIV Antigen/Antibody, 4th Generation NON-REAC TIVE NON-REAC TIVE [facility] [place] [facility] Comment: HIV-1 antigen and HIV-1/HIV-2 antibodies were not detected. There is no laboratory evidence of HIV infection. PLEASE NOTE: This information has been disclosed to you from records whose confidentiality may be protected by state law. ??If your state requires such protection, then the state law prohibits you from making any further disclosure of the information without the specific written consent of the person to whom it pertains, or as otherwise permitted by law. A general authorization for the release of medical or other information is NOT sufficient for this purpose. ?? For additional information please refer to http://education.[employer]/faq/GTA412 (This link is being provided for informational/ educational purposes only.) The performance of this assay has not been clinically validated in patients less than 2 years old. Blood Venous blood specimen / Unknown 09/07/2022 12:41 PM EDT 09/07/2022 12:46 PM EDT Narrative [facility] - 09/10/2022 9:50 PM EDT FASTING:YES SAMPLE REC'D IN [place] FASTING: YES Kaylan Bello DO LAB BLOOD ORDERABLES Final R esult Performing Organization Address City/[facility]/ZIP Co de Phone Number [facility] [address], [place] [address] [facility] [address] [place] [address] * HPV mRNA E6/E7 REFLEX TO HPV 16, 18/45 (03/03/2021 12:00 AM EDT) HPV nRNA E6/E7 Not Detected Not Detected [facility] Comment: Methodology: Computer Forwarding System Markup Clerk-Mediated Amplification This assay detects E6/E7 viral messenger RNA (mRNA) from 14 high-risk HPV types (16,18,31,33,35,39,45,51,52,56,58,59,66,68). ? The analytical performance characteristics of this assay have been determined by [facility]. The modifications have not been cleared or approved by the FDA. This assay has been validated pursuant to the CLIA regulations and is used for clinical purposes. ?? For additional information, please refer to http://education.[employer]/faq/PSW435t0 (This link if provided for information/ educational purposes only.) 03/03/2021 Kaylan Bello [facility] LAB CYTOLOGY ORDERABLES Katharine l Result Performing Organization Address [facility]/ZIP Co de Phone Number [facility] [address] * Pap Smear (03/03/2021 12:00 AM EDT) Swab Kaylandia Juaresdanii [facility] LAB CYTOLOGY ORDERABLES Katharine l Result Performing Organization Address City/[facility]/ZIP Co de Phone Number [facility] [address], [place] [address] from Last 3 Months or Most Recently Relevant to Health Maintenance Insurance [employer] [facility] [place] Care Teams Dispatch Lead Relationship Specialty Start Date End Date Kaylan Bello DO [address] [place] [phone] PCP - General Family Medicine 02/10/21
[2024-09-05 05:38] LABS: CT PCR NOT DETECTED (Not Detect.); NG PCR NOT DETECTED (Not Detect.)
[2024-10-01 08:39] LABS: HPV Genotype 16 Negative (Negative); HPV Genotype 18 Negative (Negative); HPV High Risk Negative (Negative)
== END 2024-09-04 16:32 | disposition home or self-care (01) ==
LOC: HO.HHCLNP 16:31
PROVIDERS: Visit Provider Family Medicine
DX: Z01.419 Encounter for gynecological examination (general) (routine) without abnormal findings (principal); Z11.51 Encounter for screening for human papillomavirus (HPV)
CPT/HCPCS: 87491; 87591; 87626; 88175

== ENCOUNTER 2024-10-15 14:41 | Outpatient (REF) | payer MEDICAID, SELFPAY ==
[2024-10-15 16:17] LABS: Hematocrit 37.3 % (37.0-47.0); Hemoglobin 12.8 g/dl (12.0-16.0); Mean Corpuscular HGB Conc 34.3 g/dl (31.0-35.0); Mean Corpuscular Volume 93.3 fL (80.0-98.0); Mean Platelet Volume 11.3 fL (9.4-12.3); Platelet Count 245 X10*3/uL (160-400); Red Cell Distribution Width 11.9 % (11.0-16.0); White Blood Count 8.9 X10*3/uL (4.8-10.8)
[2024-10-15 16:54] LABS: Alanine Aminotransferase 24 U/L (0-31); Albumin Level 4.7 g/dL (3.5-5.0); Alkaline Phosphatase 55 U/L (39-117); Anion Gap 11 (12-20); Aspartate Amino Transferase 29 U/L (5-31); Bilirubin Direct 0.2 mg/dL (0.0-0.5); Bilirubin Total 0.7 mg/dL (0.0-1.0); Blood Urea Nitrogen 18 mg/dL (9-16); Carbon Dioxide 27 mmol/L (22-29); Chloride 104 mmol/L (96-108); Cholesterol 224 mg/dL (<200); Estimated Glomerular Filt Rate > 60; Glucose Random 98 mg/dL (60-115); HDL Cholesterol 39 mg/dL (>40); LDL Cholesterol Calculated 147 mg/dL (<100); Potassium 4.2 mmol/L (3.3-5.1); Sodium 138 mmol/L (135-145); Total Protein 8.1 g/dL (6.5-8.0); Triglycerides 192 mg/dL (<150)
[2024-10-15 17:02] LABS: Estimated Average Glucose 114 mg/dL; Hemoglobin A1C 127.3945 umol/L; Hemoglobin A1c % 5.6 % (<6.0)
[2024-10-15 17:11] LABS: Free T4 (Free Thyroxine) 0.97 ng/dL (0.71-1.85); Thyroid Stimulating Hormone 1.24 uIU/mL (0.32-4.0); Vitamin D 25-OH Total 29.3 ng/mL (>30)
--- OUTSIDE RECORDS SUMMARY | 2024-10-15 17:18 | XMS_ITS | Encounter Summary ---
Author Organization [employer] Address [address] [place] [address] Care Team Providers Care Sail Finisher Machine Name Role Phone Kaylan Bello DO Primary Care Provider + [phone] Encounter Details Date Type Department Care Team ([facility] st Contact Info) Description 07/26/[address] [facility] [address] [place] [address] Elisabeth Knight, MILLER [address] [place] [address] Social History Tobacco Use Types Packs/Day Years [...] as of this encounter Plan of Treatment Upcoming Encounters Date Type Department Care Team (Late st Contact Info) Description 10/19/2024 4:00 PM EDT Office Visit [facility] [address] [place] [address] Inez Sosa LLD [address] [place] [address] 03/29/2025 4:00 PM EST Office Visit [facility] [address] [place] [address] Makenzie Martinez documented as of this encounter Visit Diagnoses Not on filedocumented in this encounter Additional Health Concerns Assessment Noted Time PHQ-9 Depression Total Score: 12 023 12:11 PM EDT documented as of this encounter Care Teams Sail Finisher Machine Relationship Specialty Start Date End Date Kaylan Bello DO [address] [place] [id number] PCP - General Family Medicine 02/10/21 documented as of this encounter
[2024-10-16 05:26] LABS: Hepatitis A Antibody IgG REACTIVE (Nonreactive); ~Hepatitis A Antibody IgG 8.95 S/CO (0.00-0.99)
[2024-10-16 05:31] LABS: HBS Num1 104.74 mIU/mL (0-7.99); HBc Num1 7.94 S/CO (0.00-0.79); HBsAGNum1 0.29 S/CO (0.00-0.99); HIV AB/AG Nonreactive (Nonreactive); HIV Num 1 0.06 S/CO (0.00-0.99); Hepatitis B Surface Antigen Negative (Negative); ~HepC Num1 0.11 S/CO (0.00-0.79); ~Hepatitis B Surface Antibody REACTIVE (Nonreactive); ~Hepatitis C Antibody Nonreactive (Nonreactive)
[2024-10-16 06:11] LABS: HBc Num2 8.13 S/CO; HBc Num3 8.26 S/CO; Hepatitis B Core Antibody Reactive (Nonreactive)
[2024-10-16 14:28] LABS: RPR Rapid Plasma Reagin NON-REACTIVE (NON-REACTIVE)
== END 2024-10-15 14:42 | disposition home or self-care (01) ==
LOC: HO.HHCL 14:41
PROVIDERS: Visit Provider Family Medicine
DX: Z01.419 Encounter for gynecological examination (general) (routine) without abnormal findings (principal)
CPT/HCPCS: 36415; 80048; 80061; 80076; 82306; 83036; 84439; 84443; 85027; 86592; 86704; 86706; 86708; 86803; 87340; 87389

== ENCOUNTER 2024-10-15 15:47 | Outpatient (REF) | payer MEDICAID, SELFPAY ==
--- NOTE | ~2024-10-15 | MM_ITS ---
EXAMINATION: MM SCREENING DIGITAL BREAST TOMOSYNTHESIS, BILATERAL CLINICAL INFORMATION: Screening. Asymptomatic. COMPARISON: Mammography: Comparison is made with available priors TECHNIQUE: Digital breast mammography with tomosynthesis is performed in both the craniocaudal and mediolateral oblique views along with computer-aided detection (CAD). FINDINGS: The breasts are heterogeneously dense, which may obscure small masses (ACR BI-RADS breast composition Category c). Right marker clip. There are no significant masses, abnormal calcifications, or other abnormalities. MM/MM tomosynthesis screening BI IMPRESSION: No mammographic evidence of malignancy. ASSESSMENT: BI-RADS BI-RADS 2 - Benign Findings RECOMMENDATION: Routine annual mammography screening. 1 year F/U This examination should not preclude the clinical evaluation of a suspicious palpable abnormality. This patient's information was entered into a reminder system with a target due date for their next mammogram. Electronically signed by: Rose Mary Villegas DO 10/20/2024 12:37 PM EDT
== END 2024-10-15 15:48 | disposition home or self-care (01) ==
LOC: HO.MAMMO 15:47
PROVIDERS: PCP Family Medicine; Visit Provider Family Medicine
DX: Z12.31 Encounter for screening mammogram for malignant neoplasm of breast (principal)
CPT/HCPCS: 77063; 77067

== ENCOUNTER → 2024-10-15 16:00 | Outpatient (BNV) | payer MEDICAID, SELFPAY | PROVIDERS: PCP Family Medicine; Visit Provider Internal Medicine | DX: Z12.31 Encounter for screening mammogram for malignant neoplasm of breast (principal) | CPT/HCPCS: 77063; 77067 ==

== ENCOUNTER 2024-12-29 13:18 | Outpatient (REF) | payer OTHER, SELFPAY ==
--- OUTSIDE RECORDS SUMMARY | 2024-12-29 14:32 | XMS_ITS | Clinical Summary ---
Author Organization [facility] Address [address] [facility] [address] [place] [address] Phone Care Team Providers Care Donor Relations Associate Name Role Phone Kaylan Bello DO Primary Care Provider [phone] Pcp, Unknown Unavailable Unavailable Allergies No known active allergies Medications fluticasone propionate (FLONASE) 50 mcg/actuation nasal spray 2 sprays by Nasal route daily. 15.8 mL 01/04/2022 Active Immunizations Immunization Administration Dates Next Due COVID-19 (Pre) Moderna Vaccine, mRNA, PF 0 06/30/2020,06/02/2020 COVID-19 (Pre-03/04) Pfizer Vaccine, mRNA, PF Influenza, Unspecified Formulation 02/17/2020 Td (adult),2 Lf Tetanus Toxoid, PF, Adsorbed Tdap 10/03/2009 Social History Tobacco Use Types Packs/Day Years Used Date Smoking Tobacco: Never Smokeless Tobacco: Never Alcohol Use Standard Drinks/Week Comments Never 0 (1 standard drink = 0.6 oz pur e alcohol) Education Answer Date Recorded Are you interested in more education? Not on sotero e 09/07/2022 Are you concerned about learning? Not on file 09/07/2022 No 09/07/2022 No 09/07/2022 Digital Access Answer Date Recorded No 10/05/2022 No 10/05/2022 No 10/05/2022 Reliable internet access at home? Not on file 10/05/2022 Device with a working camera? Not on file Intimate Partner Violence Answer Date R ecorded Are you denied basic needs s uch as food, clothing, or medical care? No 08/27/2022 In the past 12 months have y ou been in a relationship with a person who hurts, threatens, or tries to control you? No 08/27/2022 Are you denied basic needs s uch as food, clothing, or medical care? No 08/27/2022 In the past 12 months have y ou been in a relationship with a person who hurts, threatens, or tries to control you? No 08/27/2022 Comments No Sex and Gender Information Value Date Recorded Sex Assigned at Female 09/12/2018 12:38 PM EDT Legal Sex Female 9:28 PM EDT Gender Identity Female 09/12/2018 12:38 PM EDT Sexual Orientation Choose not to disclose 2018 12:38 PM EDT Last Filed Vital Signs Vital Sign Reading Time Taken Comments Blood Pressure 124/83 08/27/2022 10:04 PM EDT Pulse 65 08/27/2022 10:04 PM EDT Temperature 36.4 C (97.5 F) 08/27/2022 10:04 PM EDT Respiratory Rate 18 08/27/2022 10:04 PM EDT Oxygen Saturation 99% 08/27/2022 10:04 PM EDT Inhaled Oxygen Concentration - - Weight 68.9 kg (152 lb) 08/27/2022 7:02 PM EDT Height 165.1 cm (5' 5 ) 08/27/2022 7:02 PM EDT Body Mass Index 25.29 08/27/2022 7:02 PM EDT Plan of Treatment Health Maintenance Due Date Last Done Comments LIPID PANEL 1975 DEPRESSION SCREENING 1987 HEPATITIS C SCREENING 07/11/1993 HIV ONE-TIME SCREENING (18-65 YEARS) 07/11/1993 PAP SMEAR 07/11/1996 COLOGUARD 07/11/2020 COLONOSCOPY 07/11/2020 COLORECTAL CANCER SCREENING 07/11/2020 FIT TEST 07/11/2020 FOBT 07/11/2020 SIGMOIDOSCOPY 07/11/2020 VIRTUAL COLONOSCOPY 07/11/2020 SCREENING FOR DIABETES 09/12/2021 09/12/2018 COVID-19 VACCINE ( season) 2024 05/24/2021, 06/30/2020, 06/02/2020 MAMMOGRAM 06/25/2024 06/25/2022, 06/13, 06/16/2021, Additional history exists Adult Td,Tdap Booster 08/08/2030 08/08/2020 , 09/19/2018, 10/03/2009 HEPATITIS A VACCINES Aged Out 09/19/2018 No long er eligible based on patient's age to complete this topic SMOKING STATUS SCREENING (Once After 26 Yrs) Completed 08/27/2022 HIB VACCINES Aged Out No longer eligi ble based on patient's age to complete this topic MENINGOCOCCAL VACCINES (ACWY) Aged Out No longer eligible based on patient's age to complete this topic MENINGOCOCCAL VACCINES (B) Aged Out N o longer eligible based on patient's age to complete this topic PNEUMOCOCCAL VACCINES (0-49 years) Aged Out No longer eligible based on patient's age to complete this topic Medical Devices Not on file Insurance [facility] [employer] [facility] C[employer] [facility] [employer] [facility] [address] [place] [address] [place] [address] [place] [address] [place] [address] [place] [address] [place] [address] C3 [employer]CO [facility] C3 ACO [facility] SAFETY NET FULL [facility] FULL Member Subscriber Plan / Payer (Ef fective for All Dates) Name:Alondra Marques Relation to Subscriber:Self Name:Alondra Marques Payer ID:Not on file Group ID:Not on file Type:Medicaid Address: [place] [id number] [facility] FULL [employer] S[employer] NET FULL [employer] [facility] FULL [employer] [facility] FULL Member Subscriber Plan / Payer (Ef fective for All Dates) Name:Alondra Marques Relation to Subscriber:Self Name:Alondra Marques Payer ID:Not on file Group ID:Not on file Type:Medicaid Address: [place] [id number] [facility] Care Teams Donor Relations Associate Relationship Specialty Start Date End Date Kaylan Bello DO [address] [place] [address] PCP - General Family Medicine 10/15/21 Pcp, Unknown 11/05/17 Additional Source Comments The information contained in this document represents components of the legal health record. It is not the complete legal health record.[facility]
--- OUTSIDE RECORDS SUMMARY | 2024-12-29 14:32 | XMS_ITS | Encounter Summary ---
Author Organization [employer] Address [address] [place] [address] Care Team Providers Care Rn Clinical Resource Name Role Phone Kaylan Bello DO Primary Care Provider + [phone] Encounter Details Date Type Department Care Team ([facility] st Contact Info) Description 07/26/2023 Orders Only [facility] [address] [place] [address] Elisabeth Knight FNP [address] [place] [address] Social History Tobacco Use Types Packs/Day Years [...] Care Team (Late st Contact Info) Description 03/29/2025 4:00 PM EST Office Visit [facility] [address] [place] [address] Makenzie Martinez documented as of this encounter Visit Diagnoses Not on filedocumented in this encounter Additional Health Concerns Assessment Noted Time PHQ-9 Depression Total Score: 12 023 12:11 PM EDT documented as of this encounter Care Teams Rn Clinical Resource Relationship Specialty Start Date End Date Kaylan Bello DO [address] [place] [address] PCP - General Family Medicine 02/10/21 documented as of this encounter
[2024-12-29 16:22] LABS: MANUAL DIFF FLAG NO
[2024-12-29 16:36] LABS: Hematocrit 39.9 % (37.0-47.0); Hemoglobin 13.6 g/dl (12.0-16.0); Imm Gran Abs Auto 0.02 X10*3/uL (0.00-0.03); Imm Gran Pct Auto 0.2 % (0.0-0.4); Lymphocytes Absolute Auto 3.1 X10*3/uL (1.2-4.9); Mean Corpuscular HGB Conc 34.1 g/dl (31.0-35.0); Mean Corpuscular Hemoglobin 32.3 pg (27.0-33.0); Mean Corpuscular Volume 94.8 fL (80.0-98.0); NRBC Abs Auto 0.000 X10*3/uL (0.0-0.012); NRBC Pct Auto 0.0 /100WBC (0.0-0.2); Platelet Count 248 X10*3/uL (160-400); Red Blood Count 4.21 X10*6/uL (4.20-5.50); White Blood Count 9.5 X10*3/uL (4.8-10.8)
[2024-12-29 16:55] LABS: Alanine Aminotransferase 18 U/L (0-31); Albumin Level 4.8 g/dL (3.5-5.0); Alkaline Phosphatase 59 U/L (39-117); Anion Gap 13 (12-20); Aspartate Amino Transferase 26 U/L (5-31); Blood Urea Nitrogen 14 mg/dL (9-16); Calcium 9.6 mg/dL (8.4-10.2); Carbon Dioxide 26 mmol/L (22-29); Chloride 104 mmol/L (96-108); Estimated Glomerular Filt Rate > 60; Iron 106 mcg/dL (30-160); Percent Iron Saturation 34 % (15-50); Potassium 4.3 mmol/L (3.3-5.1); Sodium 139 mmol/L (135-145); Total Iron Binding Capacity 311 mcg/dL (228-428); Total Protein 8.1 g/dL (6.5-8.0); Unsaturated Iron Binding 205 ug/dL
[2024-12-29 17:15] LABS: Folate 16.1 ng/mL (> or = 4.0); Vitamin B12 790 pg/mL (200-900)
[2024-12-29 17:17] LABS: Ferritin 56 ng/mL (10-250); Free T4 (Free Thyroxine) 0.92 ng/dL (0.71-1.85); Thyroid Stimulating Hormone 1.81 uIU/mL (0.32-4.0)
== END 2024-12-29 13:19 | disposition home or self-care (01) ==
LOC: HO.HHCL 13:18
PROVIDERS: PCP Family Medicine; Visit Provider Family Medicine
DX: R42 Dizziness and giddiness (principal)
CPT/HCPCS: 36415; 80048; 80076; 82306; 82607; 82728; 82746; 83540; 84439; 84443; 85025